=== PATIENT | male | born 1970 | race African-American/Black ===

== ENCOUNTER 2021-05-05 17:05 | Emergency (ER) | payer OTHER, SELFPAY ==
--- NOTE | ~2021-05-05 | XR_ITS ---
EXAMINATION: XR CHEST CLINICAL INFORMATION: Fever; rule out Covid 19 pneumonia COMPARISON: None TECHNIQUE: Frontal view of the chest was obtained. FINDINGS: There is a kyphotic projection. No significant abnormality is noted involving the heart, lungs, mediastinum, bony thorax or soft tissues. XR/XR chest 1V IMPRESSION: Unremarkable examination.
[2021-05-05 17:10] VITALS: BP 156/103; PULSE 104; RESP 20; TEMP 37.1; O2SAT 98; BMI 30.5
[2021-05-05 18:28] LABS: COVID-19 Test Negative (Negative)
[2021-05-05] MEDS: Azithromycin 500 MG TABLET PO (20:04)
[2021-05-05] MEDS: guaiFEN/Codeine SF 200/20/10ML 10 ML LIQUID PO (20:04)
[2021-05-05] MEDS: predniSONE 20 MG TABLET 60 MG PO (20:04)
[2021-05-05] MEDS: Albuterol Sulfate 90 MCG 8 GM INHALER 4 PUFF INHALE (20:04)
--- NOTE | 2021-05-05 20:28 | ED.URI ---
HPI - URI/Sore Throat General Chief Complaint: Fever Stated Complaint: flu like Time Seen by Provider: 05/05/21 17:29 Source: patient Mode of arrival: ambulatory Limitations: no limitations History of Present Illness HPI Narrative: Patient just visited [place] came back few days ago for last 3 -4 days having cold symptoms low-grade fever headache body aches patient's son was also sick who was tested negative for COVID patient already been vaccinated against COVID Related Data Previous Rx's Medication Instructions Recorded albuterol sulfate 90 mcg/actuation 2 puff INHALATION Q4-6H PRN #8.5 g 05/05/21 aerosol inhaler (ProAir HFA) azithromycin 250 mg tablet 250 mg PO DAILY 4 Days #4 tab 05/05/21 (Zithromax) codeine 10 mg-guaifenesin 100 mg/5 10 ml PO Q4-6H PRN #237 ml 05/05/21 mL oral liquid prednisone 20 mg tablet 40 mg PO DAILY #10 tab 05/05/21 Allergies Allergy/AdvReac Type Severity Reaction Status Date / Time Penicillins Allergy Unknown Verified 05/05/21 17:09 Review of Systems Review of Systems: Yes all other systems are reviewed and are negative [facility] Social History Social History Advance Directives: No Advance Directives Information Provided: Yes Physical Exam Vital Signs: Vital Signs: Last Vital Signs Temp 98.8 F 05/05/21 17:10 Pulse 104 H 05/05/21 17:10 Resp 20 05/05/21 17:10 BP 156/103 H 05/05/21 17:10 Pulse Ox 98 05/05/21 17:10 Body Mass Index 30.5 Appearance: Alert. Oriented X3. No acute distress. Frequent cough Eyes: PERRLA, No Nystagmus ENT: Pharynx normal. Oral Mucosa moist Neck: Normal inspection. Neck supple. CVS: Normal heart rate and rhythm. Pulses normal. Respiratory: No respiratory distress. Equal air entry bilateral, no wheezing/rales/rhonchi prolonged expiration Abdomen: Soft and nontender. Bowel sounds are present, no mass palpable, no CVA tenderness Skin: Skin warm and dry. Normal skin color. Normal skin turgor. Extremities: No lower extremity edema. No calf tenderness Neuro: Oriented X 3. No motor deficit. MDM - URI/Sore Throat MDM Narrative Medical decision making narrative: Patient chest x-ray negative discharge patient home on antibiotics, prednisone and inhaler Differential Diagnosis Differential diagnosis: Likely upper respiratory infection and viral infection Lab Data Attestation: I reviewed the patient's lab results. Labs: Lab Results 05/05/21 Range/Units 17:47 COVID-19 ([facility]INA) Negative (Negative) COVID-19 Clin Com See Note Discharge Plan Discharge Clinical Impression: Acute bronchitis Patient Disposition: Home, Self-Care Instructions: Acute Bronchitis (ED) Additional Instructions: Drink plenty of fluids Tylenol Motrin for fever or pain Antibiotic as prescribed Use inhaler and cough syrup Follow with PCP if not better Prescriptions: New azithromycin [Zithromax] 250 mg tablet 250 mg PO DAILY 4 Days Qty: 4 RF: 0 codeine-guaifenesin 10-100 mg/5 mL liquid 10 ml PO Q4-6H PRN (Reason: cough) Qty: 237 RF: 0 prednisone 20 mg tablet 40 mg PO DAILY Qty: 10 RF: 0 albuterol sulfate [ProAir HFA] 90 mcg/actuation HFA aerosol inhaler 2 puff inhalation Q4-6H PRN (Reason: shortness of breath or wheezing) Qty: 8.5 RF: 0 Interventions: ED Discharge Assessment Last Done: 05/05/21 20:47 Discharge Date/Time: 05/05/21 20:48
== END 2021-05-05 20:48 | disposition home or self-care (01) ==
PROVIDERS: Emergency Medicine; Emergency Provider Internal Medicine; PCP Internal Medicine
DX: J20.9 Acute bronchitis, unspecified (principal); Z20.822 Contact with and (suspected) exposure to COVID-19; M79.10 Myalgia, unspecified site; R51.9 Headache, unspecified
CPT/HCPCS: 36415; 71045; 87635; 99283; 99284